=== PATIENT | male | born 1985 | race Caucasian/White ===

== ENCOUNTER 2023-12-12 16:39 | Emergency (ER) | payer BC, OTHER ==
[~2023-12-12] VITALS: Ht 175.3 cm; Wt 95.3 kg
[2023-12-12 16:46] VITALS: BP 155/89; PULSE 170; RESP 26; TEMP 98.9; O2SAT 91
[2023-12-12] MEDS: HALOPERIDOL IM 5 MG/ML VIAL IM ONE (17:17)
[2023-12-12] MEDS: LORazepam 2 MG/ML VIAL IM ONE (17:18)
[2023-12-12 18:08] LABS: ALANINE AMINOTRANSFERASE 52 U/L (12-78); ALBUMIN 4.1 g/dL (3.4-5.0); ALCOHOL, BLOOD < 3 mg/dL (<10); ALKALINE PHOSPHATASE 86 U/L (50-136); ANION GAP 23.7 (8-16); ASPARTATE AMINOTRANSFERASE 43 U/L (15-37); BASOPHILS # (AUTO) 0.1 K/uL (0.00-0.22); BASOPHILS % (AUTO) 0.3 % (0.0-2.0); CALCIUM 9.5 mg/dL (8.5-10.1); CARBON DIOXIDE 20.1 mmol/L (21-32); CHLORIDE 98 mmol/L (98-107); CREATININE 1.8 mg/dL (0.6-1.3); EOSINOPHILS # (AUTO) 0.2 K/uL (0-0.4); EOSINOPHILS % (AUTO) 0.9 % (0.0-4.0); GFR ARICAN-AMERICAN 55 mL/min (>90); GFR NON ARICAN-AMERICAN 45 mL/min (>90); GLUCOSE 127 mg/dL (74-106); HEMATOCRIT 50.4 % (36-52); HEMOGLOBIN 16.6 g/dL (12.0-18.0); LYMPHOCYTES # (AUTO) 2.3 K/uL (2.0-11.5); LYMPHOCYTES % (AUTO) 14.3 % (20.5-51.1); MEAN CORPUSCULAR HEMOGLOBIN 30 pg (27-31); MEAN CORPUSCULAR HGB CONC 33 g/dL (33-37); MEAN CORPUSCULAR VOLUME 91.6 fL (80-94); MONOCYTES # (AUTO) 0.7 K/uL (0.8-1.0); MONOCYTES % (AUTO) 4.2 % (1.7-9.3); NEUTROPHILS % (AUTO) 80.3 % (42.2-75.2); PLATELET COUNT (AUTO) 330 K/uL (140-450); POTASSIUM 3.8 mmol/L (3.5-5.1); RED BLOOD CELL COUNT(AUTO) 5.51 MIL/uL (4.20-6.10); RED CELL DISTRIBUTION WIDTH 13.4 % (11.6-13.7); SALICYLATE < 2.8 mg/dL (2.8-20.0); SODIUM SERUM 138 mmol/L (136-145); TOTAL BILIRUBIN 0.5 mg/dL (0.0-1.0); TOTAL PROTEIN, SERUM 7.5 g/dL (6.4-8.2); UREA NITROGEN, BLOOD 18 mg/dL (7-18); WHITE BLOOD COUNT (AUTO) 16.2 K/uL (4.8-10.8)
[2023-12-12 18:09] LABS: ACETAMINOPHEN < 0.5 ug/ml (10-30)
[2023-12-12] MEDS: NACL 0.9% 1,000 ML IV ONE (18:41)
[2023-12-12 20:37] VITALS: BP 96/42; PULSE 108; RESP 14; TEMP 98.9; O2SAT 95
== END 2023-12-12 21:21 | disposition left against medical advice (07) ==
LOC: MED 16:39
DX: R56.9 Unspecified convulsions (principal); R45.1 Restlessness and agitation
CPT/HCPCS: 36415; 70450; 80053; 82140; 82948; 83605; 84484; 85025; 96360; 96372; 99291; G0480; G0482; J1630; J2060; J7030